=== PATIENT | male | born 1945 | race Caucasian/White ===

== ENCOUNTER 2020-10-16 10:19 | Day surgery (SDC) | payer MEDICARE ==
[2020-10-14 14:32] VITALS: BMI 29.0
[2020-10-16] MEDS ORDERED: PROPOFOL 20 ML ONE (10:50)
--- NOTE | 2020-10-16 20:03 | OP ---
DATE OF PROCEDURE: 10/16/2020 PROCEDURE PERFORMED: Electrical cardioversion. ADDITIONAL REFERRING PHYSICIAN: Dr. Sam Wick. REASON FOR PROCEDURE: Mr. Escalante is a 74-year-old man with prior history of ischemic cardiomyopathy, EF 10% to 20% in the past, who has a dual-chamber ICD in place. He had paroxysmal atrial fibrillation recently, suppressed with Multaq, but there was recurrence noted in October. He has been well anticoagulated and he is here for a planned cardioversion. DESCRIPTION OF PROCEDURE: The ICD was interrogated pre- and post-procedure and was found to be adequate order. Atrial fibrillation is continued. Propofol was given by Anesthesia specialist. A synchronized 36-joule shock through the device did not convert the patient back to sinus rhythm. An external 300-joule synchronized shock was delivered then, which achieved sinus rhythm. CONCLUSION: Successful cardioversion. PLAN: Continue Multaq and anticoagulation. Follow up in the office. Job ID: [id number]
== END 2020-10-16 14:45 | disposition home or self-care (01) ==
LOC: CCL 10:19
PROVIDERS: ATTEND Internal Medicine Cardiovascular Disease
PROC: 5A2204Z Restoration of Cardiac Rhythm, Single (ICD-10-PCS; principal; 2020-10-16)
DX: I48.19 Other persistent atrial fibrillation (principal); E11.9 Type 2 diabetes mellitus without complications; I50.22 Chronic systolic (congestive) heart failure; I25.5 Ischemic cardiomyopathy; I25.10 Atherosclerotic heart disease of native coronary artery without angina pectoris; E78.5 Hyperlipidemia, unspecified; Z79.01 Long term (current) use of anticoagulants; Z79.899 Other long term (current) drug therapy; Z87.891 Personal history of nicotine dependence; Z95.1 Presence of aortocoronary bypass graft; Z95.810 Presence of automatic (implantable) cardiac defibrillator
CPT/HCPCS: 92960; 93005; 93010; J2704

== ENCOUNTER 2021-01-16 09:39 | Outpatient (CLI) | payer MEDICARE ==
[2020-10-11 12:11] LABS: Hemoglobin 14.8 g/dL (14.0-18.0); Mean Corpuscular HGB CONC 33.6 G/DL (32.0-36.0); Mean Corpuscular Hemoglobin 32.3 PG (27.0-33.0); Mean Corpuscular Volume 96.1 fl (80.0-100.0); Mean Platelet Volume 11.1 fl (7.4-10.4); Platelet Count 182 10x3/uL (130-400); RBC Distribution Width 13.2 % (11.5-14.5); Red Blood Cell (RBC) Count 4.58 10x6/uL (4.40-5.80)
[2020-10-11 12:21] LABS: INR-International Normal Ratio 1.1; Prothrombin Time 11.2 sec (9.5-12.1)
[2020-10-11 12:26] LABS: Anion Gap 15 mmol/L (10-20); BUN (Urea Nitrogen) 19 mg/dL (8.4-25.7); Calc. Creatinine Clearance 0 mL/min (70-130); Calcium 9.5 mg/dL (7.8-10.44); Carbon Dioxide 20 mmol/L (23-31); Chloride 108 mmol/L (98-107); Glucose 92 mg/dL (83-110); Potassium 4.6 mmol/L (3.5-5.1); Sodium 138 mmol/L (136-145)
[2020-10-11 21:25] LABS: SARS-CoV-2 MS2 Positive; SARS-CoV-2 N Gene Negative; SARS-CoV-2 S Gene Negative; SARS-CoV-2 by NAA Not Detected (NotDetected); SARS-CoV-2 orf1ab Negative
[2021-01-16 12:30] LABS: Hemoglobin 15.7 g/dL (13.5-17.5); Mean Corpuscular HGB CONC 31.9 g/dL (32.0-36.0); Mean Corpuscular Hemoglobin 31.1 pg (27.0-33.0); Mean Corpuscular Volume 97.4 fl (81.2-95.1); Mean Platelet Volume 12.5 fl (7.4-10.4); Platelet Count 142 10x3/uL (150-450); RBC Distribution Width 15.3 % (11.5-14.5); Red Blood Cell (RBC) Count 5.05 10x6/uL (4.32-5.72); White Blood Cell (WBC) Count 6.6 10x3/uL (3.5-10.5)
[2021-01-16 12:52] LABS: INR-International Normal Ratio 1.3; PTT 30.3 sec (22.0-33.0); Prothrombin Time 14.5 sec (9.5-12.1)
[2021-01-16 13:07] LABS: Anion Gap 18 mmol/L (10-20); BUN (Urea Nitrogen) 26 mg/dL (8.4-25.7); Calc. Creatinine Clearance 0 mL/min (70-130); Calcium 9.4 mg/dL (7.8-10.44); Carbon Dioxide 23 mmol/L (23-31); Chloride 103 mmol/L (98-107); Glucose 84 mg/dL (83-110); Potassium 4.2 mmol/L (3.5-5.1); Sodium 140 mmol/L (136-145)
[2021-01-16 17:53] LABS: SARS-CoV-2 PCR by NAA Not Detected (NotDetected)
== END 2021-01-16 09:40 | disposition home or self-care (01) ==
LOC: LABBT 09:39
PROVIDERS: ATTEND Internal Medicine Cardiovascular Disease
DX: Z01.818 Encounter for other preprocedural examination (principal); I48.91 Unspecified atrial fibrillation; Z20.822 Contact with and (suspected) exposure to COVID-19
CPT/HCPCS: 80048; 85027; 85610; 85730; U0003; 87635; 93005; 93010; U0005

== ENCOUNTER 2021-01-20 08:23 | Day surgery (SDC) | payer MEDICARE ==
[2021-01-16 12:16] VITALS: BMI 30.5
[2021-01-20] MEDS ORDERED: Isoproterenol 0.2 MG/1 ML AMP ONE (10:11)
[2021-01-20] MEDS ORDERED: Heparin 10,000 UNITS/ 10 ML VIAL ONE (10:11)
[2021-01-20] MEDS ORDERED: Fentanyl 100 MCG/2 ML VIAL ONE (10:13)
[2021-01-20] MEDS ORDERED: Propofol 500 MG/50 ML VIAL ONE (10:14)
[2021-01-20] MEDS ORDERED: Phenylephrine 10 MG/ML VIAL ONE (10:14)
[2021-01-20] MEDS ORDERED: PHENYLEPHRINE-NS 100 MCG/ML 10 ML SYRINGE ONE (10:31)
[2021-01-20] MEDS ORDERED: Ondansetron PF 4 MG/2 ML Vial ONE ×2 (10:31→11:11)
[2021-01-20] MEDS ORDERED: DOPamine 400 MG/D5W 250 ML 250 ML ONE (11:04)
== END 2021-01-20 15:15 | disposition home or self-care (01) ==
LOC: CCL 08:23
PROVIDERS: ATTEND Internal Medicine Cardiovascular Disease
PROC: 02583ZZ Destruction of Conduction Mechanism, Percutaneous Approach (ICD-10-PCS; principal; 2021-01-20)
PROC: 02K83ZZ Map Conduction Mechanism, Percutaneous Approach (ICD-10-PCS; 2021-01-20)
DX: I48.0 Paroxysmal atrial fibrillation (principal); I50.22 Chronic systolic (congestive) heart failure; I25.10 Atherosclerotic heart disease of native coronary artery without angina pectoris; I44.7 Left bundle-branch block, unspecified; I42.0 Dilated cardiomyopathy; I25.5 Ischemic cardiomyopathy; E78.5 Hyperlipidemia, unspecified; I25.2 Old myocardial infarction; Z87.891 Personal history of nicotine dependence; Z79.01 Long term (current) use of anticoagulants; Z79.899 Other long term (current) drug therapy; Z95.1 Presence of aortocoronary bypass graft; Z95.810 Presence of automatic (implantable) cardiac defibrillator
CPT/HCPCS: 76942; 93005; 93613; 93623; 93650; C1732; J1265; J1644; J2370; J2405; J2704; J3010

== ENCOUNTER → 2021-02-26 | Day surgery (SDC) | payer MEDICARE ==
[2021-02-25 11:37] VITALS: BMI 27.4
[~2021-02-26] MED LIST: DOPamine 400 MG/D5W 250 ML 250 ML ONE; Fentanyl 100 MCG/2 ML VIAL ONE; Heparin 10,000 UNITS/ 10 ML VIAL ONE; Lidocaine 1% (PF) 30 ML VIAL ONE; Lidocaine 1% PF 5 ML VIAL ONE; Ondansetron PF 4 MG/2 ML Vial ONE; PROPOFOL 200 MG/20 ML VIAL ONE
[2021-02-26 12:41] LABS: Hemoglobin 13.5 g/dL (14.0-18.0); Mean Corpuscular HGB CONC 32.9 g/dL (32.0-36.0); Mean Corpuscular Hemoglobin 32.1 pg (27.0-31.0); Mean Corpuscular Volume 97.5 fL (78.0-98.0); RBC Distribution Width 15.4 % (11.5-14.5); Red Blood Cell (RBC) Count 4.21 mill/uL (4.70-6.10); White Blood Cell (WBC) Count 6.2 thou/uL (4.8-10.8)
[2021-02-26 12:51] LABS: INR-International Normal Ratio 1.6; PTT 37.7 sec (22.9-36.1); Prothrombin Time 19.5 sec (12.0-14.7)
[2021-02-26 12:59] LABS: #Basophils 0.1 thou/uL (0.0-0.2); #Eosinphils 0.2 thou/uL (0.0-0.7); #Monocytes 0.6 thou/uL (0.11-0.59); #Neutrophils 3.4 thou/uL (1.40-6.50); %Basophils 1.3 % (0.0-1.0); %Eosinophils 2.8 % (0.0-10.0); %Lymphocytes 31.5 % (21.0-51.0); %Monocytes 9.7 % (0.0-10.0); %Neutrophils 54.6 % (42.0-75.0); Mean Platelet Volume 9.6 fL (7.4-10.4); Platelet Count 116 thou/uL (130-400); Platelet Morphology Comment Appears Adequate
[2021-02-26 13:00] LABS: Anion Gap 13 mmol/L (10-20); BUN (Urea Nitrogen) 19 mg/dL (8.4-25.7); Calc. Creatinine Clearance 55 mL/min (70-130); Calcium 9.4 mg/dL (7.8-10.44); Carbon Dioxide 24 mmol/L (23-31); Chloride 106 mmol/L (98-107); Glucose 90 mg/dL (83-110); Potassium 3.8 mmol/L (3.5-5.1); Sodium 139 mmol/L (136-145)
== END ==
LOC: CCL 10:39
PROVIDERS: ATTEND Internal Medicine Cardiovascular Disease
PROC: 02583ZZ Destruction of Conduction Mechanism, Percutaneous Approach (ICD-10-PCS; principal; 2021-02-26)
DX: I48.19 Other persistent atrial fibrillation (principal); I42.0 Dilated cardiomyopathy; I25.5 Ischemic cardiomyopathy; I50.22 Chronic systolic (congestive) heart failure; M16.0 Bilateral primary osteoarthritis of hip; I25.10 Atherosclerotic heart disease of native coronary artery without angina pectoris; I44.7 Left bundle-branch block, unspecified; E78.5 Hyperlipidemia, unspecified; Z79.01 Long term (current) use of anticoagulants; Z79.899 Other long term (current) drug therapy; Z95.1 Presence of aortocoronary bypass graft; Z95.810 Presence of automatic (implantable) cardiac defibrillator; Z98.890 Other specified postprocedural states
CPT/HCPCS: 76942; 80048; 85025; 85610; 85730; 93005; 93010; 93623; 93650; C1732; J1265; J1644; J2001; J2405; J2704; J3010